=== PATIENT | female | born 1985 | race Caucasian/White ===

== ENCOUNTER 2016-11-12 08:57 | Emergency (ER) | payer MEDICAID ==
[2016-11-12] MEDS ORDERED: Ketorolac 60 MG/2 ML SDV IM ONE (09:32)
--- NOTE | 2016-11-12 09:36 | EDM.PDOC ---
ED HPI GENERAL MEDICAL PROBLEM - General Chief Complaint: ENT Problem Stated Complaint: TOOTH PAIN Time Seen by Provider: 11/12/16 09:17 Source of Information: Reports: Patient, Old Records, RN Notes Reviewed History Limitations: Reports: No Limitations - History of Present Illness INITIAL COMMENTS - FREE TEXT/NARRATIVE: 30-year-old female presents emergency department day complaint of dental pain, she has been dealing with this tooth for some time however over the last 24 hours it has gotten progressively worse she denies any fevers nausea vomiting she has been using anti-inflammatories as well as numbing gel to help control the pain she has some swelling in her lower jaw otherwise no other symptoms Tooth/Teeth Pain Score (Numeric/FACES): 8 - Related Data Allergies Allergy/AdvReac Type Severity Reaction Status Date / Time amoxicillin [Amoxicillin] Allergy Cannot Verified 11/12/16 09:08 Remember codeine Allergy Hives Verified 11/12/16 09:08 Penicillins Allergy Cannot Verified 11/12/16 09:08 Remember quetiapine [From Seroquel] Allergy Agitation Verified 11/12/16 09:08 risperidone [From Risperdal] Allergy Agitation Verified 11/12/16 09:08 sertraline HCl [From Zoloft] Allergy Cannot Verified 11/12/16 09:08 Remember Home Meds: Home Meds FLUoxetine [PROzac] 80 mg PO DAILY 03/03/16 [History] buPROPion HCl [Wellbutrin Xl] 300 mg PO DAILY 03/03/16 [History] Acetaminophen [Tylenol] 500 mg PO Q6H PRN 04/16/16 [History] Methadone 60 mg PO DAILY 04/16/16 [History] Gabapentin [Gabapentin] 0.5 tab PO TID 11/12/16 [History] Sulindac [Sulindac] 1 tab PO BID 11/12/16 [History] busPIRone HCl [busPIRone] 0.5 tab PO BID 11/12/16 [History] lamoTRIgine [Lamotrigine] 2 tab PO BEDTIME 11/12/16 [History] Past Medical History 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: Musculoskeletal History: Reports: Neck Pain, Chronic Neurological History: Reports: Migraines Psychiatric History: Reports: Addiction, Anxiety, Depression - Past Surgical History Female Surgical History: Reports: Section, D&C Social & Family History - Family History Family Medical History: Noncontributory - Tobacco Use Smoking Status *Q: Light Tobacco Smoker Years of Tobacco use: 10 Packs/Tins Daily: 0.3 Used Tobacco, but Quit: No Second Hand Smoke Exposure: No - Caffeine Use Caffeine Use: Reports: Coffee, Soda - Recreational Drug Use Recreational Drug Use: Yes Drug Use in Last 12 Months: Yes Recreational Drug Type: Reports: Methamphetamine, Vicodin Recreational Drug Use Frequency: Patient Refuses To Answer - Living Situation & Occupation Living situation: Reports: Single Occupation: Employed ED ROS ENT - Review of Systems Review Of Systems: See Below Constitutional: Denies: Fever, Chills HEENT: Reports: Dental Pain Respiratory: Reports: No Symptoms Cardiovascular: Reports: No Symptoms ED EXAM, ENT - Physical Exam Exam: See Below Exam Limited By: No Limitations General Appearance: Alert, WD/WN, No Apparent Distress Eye Exam: Bilateral Eye: Normal Inspection Mouth/Throat: Normal Inspection, Normal Lips, Normal Oropharynx, Dental Pain, Dental Tenderness, Other (Dental caries) Course - Vital Signs Last Recorded V/S: Last Vital Signs Temp 96.4 F 11/12/16 09:06 Pulse 85 11/12/16 09:06 Resp 18 11/12/16 09:06 BP 141/82 H 11/12/16 09:06 Pulse Ox 97 11/12/16 09:06 - Orders/Labs/Meds Orders: Active Orders 24 hr Category Date Time Status Ketorolac [Toradol] Med 11/12/16 09:32 Once 60 mg IM ONETIME ONE Medication Orders Ketorolac Tromethamine (Toradol) 60 mg IM ONETIME ONE Stop: 11/12/16 09:33 Meds: Medications Generic Name Dose Route Start Last Admin Trade Name Freq PRN Reason Stop Dose Admin Ketorolac Tromethamine 60 mg 11/12/16 09:32 Toradol IM 11/12/16 09:33 ONETIME ONE Departure - Departure Time of Disposition: 09:35 Disposition: DC/Tfer to Other 70 Clinical Impression: Pain, dental - Discharge Information Forms: ED Department Discharge Additional Instructions: Please report to the dental clinic and wait to be seen and evaluated - My Orders Last 24 Hours: My Active Orders 11/12/16 09:32 Ketorolac [Toradol] 60 mg IM ONETIME ONE - Assessment/Plan Last 24 Hours: My Active Orders 11/12/16 09:32 Ketorolac [Toradol] 60 mg IM ONETIME ONE Plan: Assessment Acuity = acute Site and laterality = dental pain tooth #4 Etiology = multiple dental caries with poor tooth health Manifestations = pain Location of injury = Home Lab values = none Plan She was provided 60 mg of Toradol IM 1 consults with the dental clinic they agreed to evaluate her this today, she will report to the dental clinic and sit and wait to be evaluated Patient was in agreement with the plan all questions were answered This note was dictated using [employer] voice recognition software please call with any questions.
[2016-11-12 13:44] VITALS: BP 127/69
== END 2016-11-12 10:30 | disposition other institution (70) ==
LOC: JP.ED 08:57
DX: K08.89 Other specified disorders of teeth and supporting structures (principal); G43.909 Migraine, unspecified, not intractable, without status migrainosus; F41.9 Anxiety disorder, unspecified; F32.9 Major depressive disorder, single episode, unspecified; F17.210 Nicotine dependence, cigarettes, uncomplicated; Z88.0 Allergy status to penicillin; Z88.1 Allergy status to other antibiotic agents; Z88.5 Allergy status to narcotic agent; Z88.8 Allergy status to other drugs, medicaments and biological substances; Z79.899 Other long term (current) drug therapy
CPT/HCPCS: 96372; 99283; J1885